=== PATIENT | female | born 2005 | race Two or more races ===

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

== ENCOUNTER 2024-06-17 19:34 | Emergency (ER) | payer BC, OTHER ==
[~2024-06-17] VITALS: Ht 160 cm; Wt 67.1 kg
[~2024-06-17 19:34] MED LIST changes: +CLIN300C12 PO; +HYDR-3980 PO; +ONDA4TAB11 PO
[2024-06-17] MEDS ORDERED: HYDR-4209 PO (20:13)
[2024-06-17] MEDS ORDERED: AMOX500C2 PO (20:13)
[2024-06-17 20:28] VITALS: BP 135/90; TEMP 98.6
== END 2024-06-17 20:28 | disposition home or self-care (01) ==
LOC: ER 19:36
DX: H92.02 Otalgia, left ear (principal)
CPT/HCPCS: A4606; A4663